=== PATIENT | female | born 1980 | race Caucasian/White ===

== ENCOUNTER 2021-11-01 03:43 | Emergency (ER) | payer OTHER ==
[~2021-11-01] VITALS: Ht 167.6 cm; Wt 131.5 kg
[2021-11-01 03:43] VITALS: BP 134/99
[~2021-11-01 03:43] MED LIST: CETI10CA PO; CYCL10TA19 PO; DEXT10TA7 PO; ESOM40CA PO; HYDR200T72 PO; HYDR5TAB PO; INFL100V IV; LORA-447 PO; MONT10TA6 PO; NAPR-636 PO; TOPI100T39 PO; VIT1TABL3 PO; ZOLP10TA PO; [UNRECOGNIZED DRUG - CODE] PO; [UNRECOGNIZED DRUG - CODE] PO
--- NOTE | 2021-11-01 03:43 | NUR ---
ARRIVAL TAKEN VIA W/C TO ROOM. ALERT AND ORIENTED X3. WHEEZING HEARD WITHOUT AUSCULATATION. SOB, DYSPNEA, O2 SAT 95% ON RA, RR-26. H/O ASTHMA. TOOK A DUONEB ABOUT ONE HOUR PRIOR TO ARRIVAL.
[2021-11-01] MEDS ORDERED: DECADRON ONE (03:51)
[2021-11-01] MEDS ORDERED: DUO 0.5-3(2.5) MG/3 ML IH ONE (03:51)
[2021-11-01] MEDS ORDERED: SOLU-MEDROL ONE (03:51)
[2021-11-01] MEDS ORDERED: NS FLUSH ONE (03:52)
[2021-11-01] MEDS ORDERED: SOLU-MEDROL IV STA (03:58)
[2021-11-01] MEDS ORDERED: DUO 0.5-3(2.5) MG/3 ML IH STA (03:58)
[2021-11-01] MEDS ORDERED: DECADRON IH STA (03:58)
[2021-11-01 04:08] VITALS: BP 134/99
--- NOTE | 2021-11-01 04:16 | ER.PDOC ---
General Chief Complaint: Requesting Medical Care Stated Complaint: DIFF BREATHING/ASTHMA Time seen by MD: 04:10 Source: patient Exam Limitations: no limitations History of Present Illness Initial Comments Patient is asthmatic and has had cough and congestion for the last 4 days. This has triggered of asthma and she has been coughing and wheezing. She took 2 breathing treatments prior to coming to the emergency room. No chest pain. No fever or chills. Severity: moderate Initiating Event: upper respiratory illness Associated Symptoms: trouble breathing, cough Allergies: Coded Allergies: Amoxicillin (Unverified Allergy, Unknown, 02/16/14) meperidine HCl (Unverified Allergy, Unknown, 02/16/14) Home Meds Reported Medications Vit D3/Folic Acid/B2/B6/B12 (FOLGARD TABLET) 1 Each Tablet, 1 EACH PO DAILY, TABLET 05/07/16 Cetirizine Hcl (ZYRTEC) 10 Mg Capsule, 10 MG PO DAILY, CAPSULE 05/07/16 Topiramate (TOPAMAX) 100 Mg Tablet, 100 MG PO DAILY, TABLET 05/07/16 Montelukast Sodium (SINGULAIR) 10 Mg Tablet, 1 TAB PO DAILY, #90 TAB 1 Refill 05/07/16 Infliximab (REMICADE) 100 Mg Vial, 100 MG IV EVERY 6WEEKS, VIAL 05/07/16 Hydroxychloroquine Sulfate (PLAQUENIL) 200 Mg Tablet, 200 MG PO BID, TABLET 05/07/16 Oxycodone Hcl/Acetaminophen (PERCOCET 5-325 MG TABLET) 1 Each Tablet, 1 EACH PO PRN PRN for PAIN, TABLET 05/07/16 Esomeprazole Magnesium (NEXIUM) 40 Mg Capsule.dr, 1 CAP PO DAILY, #30 CAP 5 Refills 05/07/16 Naproxen (NAPROXEN) 500 Mg Tablet, 500 MG PO PRN PRN for PAIN, TABLET 05/07/16 Cyclobenzaprine Hcl (FLEXERIL) 10 Mg Tablet, 1 TAB PO HS, #30 TAB 05/07/16 Lorazepam (ATIVAN) 0.5 Mg Tablet, 0.5 MG PO PRN PRN for ANXIETY, TABLET 05/07/16 Zolpidem Tartrate (AMBIEN) 10 Mg Tablet, 1 TAB PO HS, #30 TAB 5 Refills 05/07/16 Amphet Asp/Amphet/D-Amphet (ADDERALL 10 MG TABLET) 10 Mg Tablet, 10 MG PO DAILY, TABLET 05/07/16 Hydrocortisone (HYDROCORTISONE) 5 Mg Tablet, 5 MG PO HS, TABLET 02/16/14 Hydrocortisone (HYDROCORTISONE) 10 Mg Tablet, 15 MG PO DAILY IN AM, TABLET 02/16/14 Past Medical History Medical History: asthma Surgical History: hysterectomy, knee Social History Smoking: non-smoker Alcohol Use: sober Constitutional: no symptoms reported EENTM: no symptoms reported Respiratory: see HPI Cardiovascular: no symptoms reported Gastrointestinal: no symptoms reported All Other Systems: Reviewed and Negative Physical Exam General Appearance: alert, no distress EENT: eyes nml, no nystagmus, ENT nml inspection, pharynx nml Neck: nml inspection, non-tender Respiratory: chest non-tender, no respiratory distress, wheezing Cardiovascular: Normal Peripheral Pulses, Regular Rate, Rhythm, No Edema, No Gallop, No JVD, No Murmur Abdomen: non-tender, no organomegaly Skin: Normal Color, Warm/Dry Extremities: non-tender, nml ROM, no pedal edema NEURO/PSYCH: oriented x 3, CN's nml as tested, motor nml, sensation nml, mood/affect nml Results/Orders Results/Orders Orders - SARAH HERNANDEZ MD Methylprednisolone Sod Succ (Solu-Medrol (11/01/21 03:51) Ipratropium/Albuterol Sulfate (Duo 0.5-3 (11/01/21 03:51) Dexamethasone Sodium Phosphate (Decadron (11/01/21 03:51) Sodium Chloride 0.9 % (Flush) (Ns Flush) (11/01/21 03:52) Ipratropium/Albuterol Sulfate (Duo 0.5-3 (11/01/21 03:58) Dexamethasone Sodium Phosphate (Decadron (11/01/21 03:58) Methylprednisolone Sod Succ (Solu-Medrol (11/01/21 03:58) Progress Progress Chest x-ray is clear. Patient received a breathing treatment with DuoNeb and Decadron and also Solu-Medrol 125 mg IV. She is feeling better and her wheezes resolved. She refused to have Covid testing done telling me that she had one done at home 2 days ago and was negative. She is in stable condition to go home. ER DEPARTURE Departure Time of Disposition: 04:49 Disposition: 01 HOME / SELF CARE / HOMELESS Impression: Primary Impression: Asthma exacerbation Additional Impression: Viral upper respiratory tract infection Condition: Improved Referrals: PCP,UNKNOWN (PCP) PRIMARY CARE PROVIDER Additional Instructions: Continue steroids and breathing treatments at home Mucinex DM [id number] as directed Follow-up with your PCP in 2 to 3 days Return to ED if worsening symptoms or concerns Duration or Time Spent with Pa: 20 min Justification of Admit/Observ Is this patient coming directl: Yes *Level of Care/Services Provid: ER Admit Criteria Met: NO Justification Content JUSTIFICATION FOR ADMISSION Instructions 1. Open link in [employer] Browser. [email or web address] 2. Copy and paste data needed to meet the Admit Criteria. 3. Modify and document the needful data to meet the Admit Criteria. Problem Qualifiers Primary Impression: Asthma exacerbation Asthma severity: mild Asthma persistence: intermittent Qualified Codes: J45.21 - Mild intermittent asthma with (acute) exacerbation SARAH HERNANDEZ MD Nov 01, 2021 04:16
--- NOTE | 2021-11-01 04:37 | DIREP ---
PROCEDURE:CHEST 1 VIEW COMPARISON:None. INDICATIONS:SOB FINDINGS: LUNGS/PLEURA:No significant pulmonary parenchymal abnormalities. No effusions. VASCULATURE:Normal. Unremarkable pulmonary vasculature. CARDIAC:Normal. No cardiac silhouette abnormality or cardiomegaly. MEDIASTINUM:Normal. No visible mass or adenopathy. BONES:Normal. No fracture or visible bony lesion. OTHER:Negative. CONCLUSION:No acute disease. Dictated by: Brady Newberry MD on 11/01/2021 at 04:34 AM
[2021-11-01 04:44] VITALS: BP 128/88
== END 2021-11-01 05:03 | disposition home or self-care (01) ==
LOC: ER 03:43
DX: J45.901 Unspecified asthma with (acute) exacerbation (principal); J06.9 Acute upper respiratory infection, unspecified; B97.89 Other viral agents as the cause of diseases classified elsewhere; Z79.1 Long term (current) use of non-steroidal anti-inflammatories (NSAID); Z79.899 Other long term (current) drug therapy; Z88.0 Allergy status to penicillin; Z90.710 Acquired absence of both cervix and uterus
CPT/HCPCS: 71045; 94640; 96374; 99284; J1100; J2930; J7030; 99283